=== PATIENT | male | born 1990 | race Caucasian/White ===

== ENCOUNTER 2023-07-20 12:50 | Emergency (ER) | payer SELFPAY ==
[~2023-07-20] VITALS: Ht 175 cm; Wt 158.0 kg
[~2023-07-20 12:50] MED LIST: SULF1TAB38 PO
[2023-07-20 13:12] LABS: BASOPHILS # (AUTO) 0.1 10^3/uL (0.0-0.1); BASOPHILS % (AUTO) 0 % (0-10); EOSINOPHILS # (AUTO) 0.2 10^3/uL (0.0-0.3); EOSINOPHILS % (AUTO) 2 % (0-10); HEMATOCRIT 45 % (40-54); HEMOGLOBIN 14.9 g/dL (13.3-17.7); LYMPHOCYTES # (AUTO) 1.4 10^3/uL (1.0-4.0); LYMPHOCYTES % (AUTO) 12 % (12-44); MEAN CORPUSCULAR HEMOGLOBIN 29 pg (25-34); MEAN CORPUSCULAR HGB CONC 34 g/dL (32-36); MEAN CORPUSCULAR VOLUME 87 fL (80-99); MEAN PLATELET VOLUME 10.9 fL (9.0-12.2); MONOCYTES # (AUTO) 0.5 10^3/uL (0.0-1.0); MONOCYTES % (AUTO) 4 % (0-12); NEUTROPHILS # (AUTO) 9.2 10^3/uL (1.8-7.8); NEUTROPHILS % (AUTO) 81 % (42-75); PLATELET COUNT 219 10^3/uL (130-400); WHITE BLOOD COUNT 11.4 10^3/uL (4.3-11.0)
[2023-07-20] MEDS ORDERED: PANTOPRAZOLE INJECTION 40 MG VIAL IV ONE (13:15)
[2023-07-20] MEDS ORDERED: ACETAMINOPHEN 500 MG TABLET PO ONE (13:15)
[2023-07-20] MEDS ORDERED: ANTACID SUSPENSION 30 ML UDC PO ONE (13:15)
[2023-07-20] MEDS ORDERED: ONDANSETRON INJECTION 4 MG/2 ML (SDV) IVP ONE (13:15)
[2023-07-20] MEDS ORDERED: LIDOCAINE 2% VISCOUS 15 ML UDC PO ONE (13:15)
[2023-07-20 13:16] LABS: CHLORIDE 105 MMOL/L (98-107); POTASSIUM 3.4 MMOL/L (3.6-5.0); SODIUM 141 MMOL/L (135-145)
[2023-07-20 13:17] LABS: PROTHROMBIN TIME PATIENT 13.7 SEC (12.2-14.7)
[2023-07-20 13:18] LABS: GLUCOSE 115 MG/DL (70-105); TOTAL PROTEIN 7.3 GM/DL (6.4-8.2)
[2023-07-20 13:19] LABS: CARBON DIOXIDE 24 MMOL/L (21-32)
[2023-07-20 13:20] LABS: BILIRUBIN,TOTAL 0.5 MG/DL (0.1-1.0); FIBRIN DEGRADATION PRODUCTS 0.37 UG/ML (0.00-0.49)
[2023-07-20 13:22] LABS: ALKALINE PHOSPHATASE 69 U/L (40-136); CREATININE SERUM 0.77 MG/DL (0.60-1.30); GFR ESTIMATED 122
[2023-07-20 13:23] LABS: BUN/CREATININE RATIO 9
[2023-07-20 13:24] LABS: MAGNESIUM 1.7 MG/DL (1.6-2.4)
[2023-07-20 13:25] LABS: ALANINE AMINOTRANSFERASE 182 U/L (0-55)
[2023-07-20 13:26] LABS: LIPASE 27 U/L (8-78)
--- NOTE | 2023-07-20 13:37 | Diagnostic Imaging Report ---
INDICATION: Central chest pain. COMPARISON: None FINDINGS: Single frontal view of the chest demonstrates enlargement of the cardiac silhouette and low inspiratory volumes. This, however may be exaggerated by portable technique. Pulmonary vasculature is within normal limits. The lungs are well aerated and clear. No large pleural effusion or pneumothorax is seen. The visualized osseous structures show no acute abnormalities. IMPRESSION: 1. Enlargement of the cardiac silhouette, which may exaggerated by portable technique and low inspiratory volumes. There is otherwise no evidence of failure or focal infiltrate. Dictated by: Dictated on workstation # [id number]
[2023-07-20 14:04] LABS: AMPHETAMINE SCREEN, URINE NEGATIVE (NEGATIVE); BARBITURATE SCREEN URINE NEGATIVE (NEGATIVE); BENZODIAZEPINES SCREEN URINE POSITIVE (NEGATIVE); CANNABINOID SCREEN, URINE POSITIVE (NEGATIVE); COCAINE SCREEN URINE NEGATIVE (NEGATIVE); METHADONE STAT NEGATIVE (NEGATIVE); OPIATE SCREEN URINE NEGATIVE (NEGATIVE); OXYCODONE STAT NEGATIVE (NEGATIVE); PROPOXYPHENE STAT NEGATIVE (NEGATIVE); TRICYCLIC ANTIDEPRESSANTS SCRE NEGATIVE (NEGATIVE)
--- NOTE | 2023-07-20 14:45 | ED Chest Pain ---
General Chief Complaint: Chest Pain Stated Complaint: CHEST PAINS Nursing Triage Note: PT ARRIVED PER EMS FROM [facility] W CO OF C/P. PT STATES HAS HAD C/P FOR A COUPLE WEEKS, TODAY HAS CHEST PRESSURE 7/10. PT HAS IV NS INFUSING. PT HAS HAD 4 BABY ASA AND 1SL NITRO FOR CHEST PRESSURE. PT STATES HAS HANDS AND FEET TINGLING. Source: patient, EMS, other (Urgent Care) Exam Limitations: no limitations History of Present Illness Date Seen by Provider: Jul 20, 2023 Time Seen by Provider: 12:53 Allergies and Home Medications Allergies Coded Allergies: No Known Drug Allergies (Unverified , 07/20/23) Patient Home Medication List Trimethoprim/Sulfamethoxazole (Bactrim Ds) 1 Ea Tablet, 1 EA PO BID Prescribed by: TRACY REID on 07/09/102012 Past Lowxywb-Nymkgz-Bzgbjp Hx Patient Social History Tobacco Use?: Yes Tobacco type used: Cigarettes Smoking Status: Current Everyday Smoker Substance use?: Yes Substance type: Marijuana Substance frequency: Daily Alcohol Use?: Yes Alcohol type: Hard Liquor Alcohol Frequency: Couple times a week Pt feels they are or have been: No Immunizations Up To Date First/Initial COVID19 Vaccinat: YES Past Medical History Surgery/Hospitalization HX: NONE Physical Exam Vital Signs Vital Signs - First Documented 07/20/23 12:53 Temp 38.2 Pulse 104 Resp 12 B/P (MAP) 85/118 (107) Pulse Ox 95 O2 Delivery Nasal Cannula O2 Flow Rate 2.00 Capillary Refill : Less Than 3 Seconds Height, Weight, BMI Height: '" Weight: lbs. oz. kg; 51.00 BMI Method: Progress/Results/Core Measures Results/Orders Lab Results Laboratory Tests Test 07/20/23 12:55 07/20/23 13:08 07/20/23 13:42 Range/Units White Blood Count 11.4 H 4.3-11.0 10^3/uL Red Blood Count 5.10 4.30-5.52 10^6/uL Hemoglobin 14.9 13.3-17.7 g/dL Hematocrit 45 40-54 % Mean Corpuscular Volume 87 80-99 fL Mean Corpuscular Hemoglobin 29 25-34 pg Mean Corpuscular Hemoglobin Concent 34 32-36 g/dL Red Cell Distribution Width 12.9 10.0-14.5 % Platelet Count 219 130-400 10^3/uL Mean Platelet Volume 10.9 9.0-12.2 fL Immature Granulocyte % (Auto) 1 % Neutrophils (%) (Auto) 81 H 42-75 % Lymphocytes (%) (Auto) 12 12-44 % Monocytes (%) (Auto) 4 0-12 % Eosinophils (%) (Auto) 2 0-10 % Basophils (%) (Auto) 0 0-10 % Neutrophils # (Auto) 9.2 H 1.8-7.8 10^3/uL Lymphocytes # (Auto) 1.4 1.0-4.0 10^3/uL Monocytes # (Auto) 0.5 0.0-1.0 10^3/uL Eosinophils # (Auto) 0.2 0.0-0.3 10^3/uL Basophils # (Auto) 0.1 0.0-0.1 10^3/uL Immature Granulocyte # (Auto) 0.1 0.0-0.1 10^3/uL Prothrombin Time 13.7 12.2-14.7 SEC INR Comment 1.0 0.8-1.4 Activated Partial Thromboplast Time 29 24-35 SEC D-Dimer 0.37 0.00-0.49 UG/ML Sodium Level 141 135-145 MMOL/L Potassium Level 3.4 L 3.6-5.0 MMOL/L Chloride Level 105 98-107 MMOL/L Carbon Dioxide Level 24 21-32 MMOL/L Anion Gap 12 5-14 MMOL/L Blood Urea Nitrogen 7 7-18 MG/DL Creatinine 0.77 0.60-1.30 MG/DL Estimat Glomerular Filtration Rate 122 BUN/Creatinine Ratio 9 Glucose Level 115 H 70-105 MG/DL Calcium Level 9.0 8.5-10.1 MG/DL Corrected Calcium 9.0 8.5-10.1 MG/DL Magnesium Level 1.7 1.6-2.4 MG/DL Total Bilirubin 0.5 0.1-1.0 MG/DL Aspartate Amino Transf (AST/SGOT) 86 H 5-34 U/L Alanine Aminotransferase (ALT/SGPT) 182 H 0-55 U/L Alkaline Phosphatase 69 40-136 U/L Myoglobin 33.2 10.0-92.0 NG/ML Troponin I < 0.028 <0.028 NG/ML C-Reactive Protein High Sensitivity 2.79 H 0.00-0.50 MG/DL Total Protein 7.3 6.4-8.2 GM/DL Albumin 4.0 3.2-4.5 GM/DL Lipase 27 8-78 U/L Serum Alcohol < 10 <10 MG/DL Influenza Type A (RT-PCR) Not Detected Not Detecte Influenza Type B (RT-PCR) Not Detected Not Detecte SARS-CoV-2 RNA (RT-PCR) Not Detected Not Detecte Urine Opiates Screen NEGATIVE NEGATIVE Urine Oxycodone Screen NEGATIVE NEGATIVE Urine Methadone Screen NEGATIVE NEGATIVE Urine Propoxyphene Screen NEGATIVE NEGATIVE Urine Barbiturates Screen NEGATIVE NEGATIVE Ur Tricyclic Antidepressants Screen NEGATIVE NEGATIVE Urine Phencyclidine Screen NEGATIVE NEGATIVE Urine Amphetamines Screen NEGATIVE NEGATIVE Urine Methamphetamines Screen NEGATIVE NEGATIVE Urine Benzodiazepines Screen POSITIVE H NEGATIVE Urine Cocaine Screen NEGATIVE NEGATIVE Urine Cannabinoids Screen POSITIVE H NEGATIVE My Orders Orders - ZHANG CNOTI MD Ekg Tracing (07/20/23 12:54) Cbc With Automated Diff (07/20/23 13:01) Magnesium (07/20/23 13:01) Chest 1 View, Ap/Pa Only (07/20/23 13:01) Comprehensive Metabolic Panel (07/20/23 13:01) Myoglobin Serum (07/20/23 13:01) Protime With Inr (07/20/23 13:01) Partial Thromboplastin Time (07/20/23 13:01) O2 (07/20/23 13:01) Monitor-Rhythm Ecg Trace Only (07/20/23 13:01) Lipid Panel (07/21/23 06:00) Ed Iv/Invasive Line Start (07/20/23 13:01) Lipase (07/20/23 13:01) Fibrin Degradation Products (07/20/23 13:01) Troponin I [place] (07/20/23 13:01) Hs C Reactive Protein (07/20/23 13:01) Acetaminophen Tablet (Acetaminophen Ta (07/20/23 13:15) Ondansetron Injection (Ondansetron Inj (07/20/23 13:15) Lidocaine 2% Viscous 15 Ml (Xylocaine Vi (07/20/23 13:15) Antacid Suspension (Antacid Suspension (07/20/23 13:15) Pantoprazole Injection (Pantoprazole Inj (07/20/23 13:15) Alcohol (07/20/23 13:01) Drug Screen Stat (Urine) (07/20/23 13:01) Covid 19 Inhouse Test (07/20/23 13:01) Influenza A And B By Pcr (07/20/23 13:01) Medications Given in ED Current Medications Medications Dose Ordered Sig/Fior Route Start Time Stop Time Status Last Admin Dose Admin Acetaminophen 1,000 mg ONCE ONCE PO 07/20/23 13:15 07/20/23 13:16 DC 07/20/23 13:16 1,000 MG Al Hydrox/Mg Hydrox/Simethicone 30 ml ONCE ONCE PO 07/20/23 13:15 07/20/23 13:16 DC 07/20/23 13:16 30 ML Lidocaine HCl 15 ml ONCE ONCE PO 07/20/23 13:15 07/20/23 13:16 DC 07/20/23 13:16 15 ML Ondansetron HCl 4 mg ONCE ONCE IVP 07/20/23 13:15 07/20/23 13:16 DC 07/20/23 13:16 4 MG Pantoprazole 40 mg ONCE ONCE IV 07/20/23 13:15 07/20/23 13:16 DC 07/20/23 13:16 40 MG Vital Signs/I&O 07/20/23 07/20/23 12:53 12:53 Temp 38.2 Pulse 104 Resp 12 B/P (MAP) 85/118 (107) Pulse Ox 95 O2 Delivery Nasal Cannula Nasal Cannula O2 Flow Rate 2.00 2.00 Blood Pressure Mean: 107 Initial ECG Impression Date: Jul 20, 2023 Initial ECG Impression Time: 12:57 Initial ECG Rate: 102 Initial ECG Rhythm: S.Tach Initial ECG Intervals: Normal Comment Sinus tachycardia with no ST elevation or depression. No abnormal intervals or axis deviation. Diagnostic Imaging Diagonstic Imaging: Xray Plain Films/CT/US/NM/MRI: chest Comments NAME: ITZEL MEDEIROS [employer] REC#: [id number] PT STATUS: REG ER : 1990 PHYSICIAN: ZHANG CONTI MD ADMIT DATE: 07/20/23/ER Draft Date of Exam:07/20/23 CHEST 1 VIEW, AP/PA ONLY INDICATION: Central chest pain. COMPARISON: None FINDINGS: Single frontal view of the chest demonstrates enlargement of the cardiac silhouette and low inspiratory volumes. This, however may be exaggerated by portable technique. Pulmonary vasculature is within normal limits. The lungs are well aerated and clear. No large pleural effusion or pneumothorax is seen. The visualized osseous structures show no acute abnormalities. IMPRESSION: 1. Enlargement of the cardiac silhouette, which may exaggerated by portable technique and low inspiratory volumes. There is otherwise no evidence of failure or focal infiltrate. Dictated on workstation # [id number] Dict: 07/20/23 1334 Trans: 07/20/23 1337 [id number] Interpreted by: EDIN TENA MD Departure Impression Primary Impression: Atypical chest pain Additional Impressions: Epigastric pain Alcohol abuse Fever Qualified Codes: R50.9 - Fever, unspecified Disposition: 01 HOME, SELF-CARE Condition: Improved Departure-Patient Inst. Decision time for Depature: 15:00 Referrals: [facility] NO,LOCAL PHYSICIAN (PCP) Primary Care Physician Patient Instructions: Acid Reflux and GERD in Adults (DC), Chest Pain That Is Not Caused by the Heart (DC), Gastritis ED Add. Discharge Instructions: The exact cause of your pain is uncertain but could be related to inflammation of your stomach (gastritis) and your esophagus (esophagitis) from excessive alcohol consumption and acid reflux. Start taking omeprazole as prescribed. Avoid the following: Eating large meals, eating close to bedtime, caffeine, carbonation, chocolate, citrus fruits and juices, tomato products, alcohol, tobacco, vaping, marijuana products, spicy foods, fatty/greasy foods, NSAID medications such as ibuprofen or naproxen, mints, and anything else you know irritates your stomach. The more you consume of these things, the more likely you are to have problems with gastritis and acid reflux. Elevating your head and shoulders at bedtime when you sleep should help with acid reflux. By following these measures, you should have a significant reduction in your taurus n over the next 1 to 2 weeks. You need to establish with a primary care provider soon as possible. The contact information for the [facility] is below for your convenience. Your oxygen levels seemed to drop while you are asleep. You likely have sleep apnea. Please inquire about testing good treatment for sleep apnea when you establish with a primary care provider. Seek assistance with quitting alcohol if needed. The [facility] has resources to help. Alternatively, [facility] also has resources and can be contacted at [phone]. For treatment of pain, you may take Tylenol (acetaminophen) up to 1000 mg every 6 hours as needed. You may also take Tums or generic equivalents per package instructions. Avoid use of NSAIDs such as ibuprofen for pain as they may worsen stomach irritation. Work toward weight loss as this will improve both acid reflux and sleep apnea. Return to the emergency room if you have worsening symptoms despite following these instructions. You also had a fever today. Your flu and COVID test were negative. No other source of infection was identified. Return to care if you have persistent fevers and are not improving. You may take Tylenol for treatment of the fever. All discharge instructions reviewed with patient and/or family. Voiced understanding. Scripts Omeprazole (Omeprazole) 20 Mg Tablet. 20 MG PO BID, #60 TAB Prov: ZHANG CONTI MD 07/20/23 ZHANG CONTI MD Jul 20, 2023 14:45
[2023-07-20] MEDS ORDERED: OMEP20TA56 PO (15:11)
[2023-07-20 15:28] VITALS: BP 138/102
== END 2023-07-20 15:28 | disposition home or self-care (01) ==
LOC: EDUNIT# 12:50 → ER 12:53
DX: R07.89 Other chest pain (principal); R10.13 Epigastric pain; R50.9 Fever, unspecified; F10.10 Alcohol abuse, uncomplicated; F17.210 Nicotine dependence, cigarettes, uncomplicated; Y90.0 Blood alcohol level of less than 20 mg/100 ml; Z20.822 Contact with and (suspected) exposure to COVID-19
CPT/HCPCS: 71045; 80053; 80306; 83690; 83735; 83874; 84484; 85025; 85379; 85610; 85730; 86141; 87636; 93005; 93041; 99284; G0480; 36415; 80320